=== PATIENT | male | born 1990 | race Caucasian/White ===

== ENCOUNTER 2017-02-07 15:08 | Emergency (ER) | payer MEDICAID, SELFPAY ==
[~2017-02-07] VITALS: Ht 175.3 cm; Wt 82.0 kg
[2017-02-07 15:10] VITALS: BP 137/53
[2017-02-07] MEDS ORDERED: DIVA500T2 PO (16:29)
[2017-02-07] MEDS ORDERED: PROP10TA PO (16:29)
[2017-02-07] MEDS ORDERED: DIPHENHYDRAMINE 25 MG CAPSULE ONE (16:41)
[2017-02-07] MEDS ORDERED: FAMOTIDINE 20 MG TABLET ONE (16:41)
[2017-02-07] MEDS ORDERED: FAMOTIDINE 20 MG TABLET PO ONE (17:00)
[2017-02-07] MEDS ORDERED: DIPHENHYDRAMINE 25 MG CAPSULE PO ONE (17:00)
== END 2017-02-07 17:16 | disposition home or self-care (01) ==
LOC: ED 17:00
DX: S00.86XA Insect bite (nonvenomous) of other part of head, initial encounter (principal); S20.369A Insect bite (nonvenomous) of unspecified front wall of thorax, initial encounter; S50.862A Insect bite (nonvenomous) of left forearm, initial encounter; S50.861A Insect bite (nonvenomous) of right forearm, initial encounter; S40.862A Insect bite (nonvenomous) of left upper arm, initial encounter; S40.861A Insect bite (nonvenomous) of right upper arm, initial encounter; S80.862A Insect bite (nonvenomous), left lower leg, initial encounter; S80.861A Insect bite (nonvenomous), right lower leg, initial encounter; W57.XXXA Bitten or stung by nonvenomous insect and other nonvenomous arthropods, initial encounter; Y93.89 Activity, other specified; Y92.098 Other place in other non-institutional residence as the place of occurrence of the external cause; Y99.8 Other external cause status
CPT/HCPCS: 99283; Q0163

== ENCOUNTER 2017-02-22 15:49 | Emergency (ER) | payer MEDICAID ==
[~2017-02-22] VITALS: Ht 175.3 cm; Wt 82.8 kg
[~2017-02-22 15:49] MED LIST: DIVA500T2 PO; PROP10TA PO
[2017-02-22 15:52] VITALS: BP 134/85
== END 2017-02-22 16:42 | disposition home or self-care (01) ==
LOC: ED 16:37
DX: J20.9 Acute bronchitis, unspecified (principal); I10 Essential (primary) hypertension; J02.8 Acute pharyngitis due to other specified organisms; J45.909 Unspecified asthma, uncomplicated; F17.210 Nicotine dependence, cigarettes, uncomplicated
CPT/HCPCS: 71020; 99284

== ENCOUNTER 2017-04-19 16:42 | Emergency (ER) | payer MEDICAID ==
[~2017-04-19] VITALS: Ht 175.3 cm; Wt 85.3 kg
[2017-04-19 17:04] VITALS: BP 128/92
== END 2017-04-19 18:30 | disposition home or self-care (01) ==
LOC: ED 18:00
DX: S89.91XA Unspecified injury of right lower leg, initial encounter (principal); G89.11 Acute pain due to trauma; X50.1XXA Overexertion from prolonged static or awkward postures, initial encounter; Y93.89 Activity, other specified; Y92.89 Other specified places as the place of occurrence of the external cause; Y99.8 Other external cause status
CPT/HCPCS: 29505; 99284

== ENCOUNTER 2017-11-16 09:38 | Emergency (ER) | payer MEDICAID ==
[~2017-11-16] VITALS: Ht 175.3 cm; Wt 70.1 kg
[2017-11-16 09:44] VITALS: BP 119/75
[2017-11-16] MEDS ORDERED: IBUPROFEN 800 MG TABLET ONE (10:25)
[2017-11-16] MEDS ORDERED: IBUPROFEN 200 MG TABLET PO ONE (10:30)
== END 2017-11-16 10:29 | disposition home or self-care (01) ==
LOC: ED 10:23
DX: K04.7 Periapical abscess without sinus (principal); J45.909 Unspecified asthma, uncomplicated; Z88.6 Allergy status to analgesic agent; F17.200 Nicotine dependence, unspecified, uncomplicated
CPT/HCPCS: 10160; 99284

== ENCOUNTER 2020-11-14 14:37 | Emergency (ER) | payer SELFPAY ==
[~2020-11-14] VITALS: Ht 175.3 cm; Wt 77.6 kg
[~2020-11-14 14:37] MED LIST changes: -PROP10TA PO; +PROP10TA16 PO
[2020-11-14 14:49] VITALS: BP 127/86
[2020-11-14 15:33] LABS: BASOPHILS % (AUTO) 1 % (0-1); EOSINOPHILS % (AUTO) 1 % (1-7); LYMPHOCYTES % (AUTO) 39 % (22-44); MEAN CORPUSCULAR HEMOGLOBIN 33.6 pg (27.5-34.5); MEAN CORPUSCULAR HGB CONC 34.2 g/dL (33.2-36.2); MONOCYTES % (AUTO) 8 % (2-9); NEUTROPHILS % (AUTO) 51 % (42-75); PLATELET COUNT 222 x10^3/uL (130-400); RED BLOOD COUNT 4.96 x10^6/uL (4.38-5.82); RED CELL DISTRIBUTION WIDTH 13.5 % (9.4-14.8)
[2020-11-14 15:48] LABS: ALANINE AMINOTRANSFERASE 23 U/L (12-78); ALBUMIN 3.5 g/dL (3.4-5.0); ANION GAP 5 mmol/L (5-15); CALCIUM 8.7 mg/dL (8.5-10.1); CHLORIDE 106 mmol/L (98-107); CREATININE 1.09 mg/dL (0.7-1.3)
[2020-11-14 15:49] LABS: ALKALINE PHOSPHATASE 48 U/L (45-117); BILIRUBIN,TOTAL 0.5 mg/dL (0.2-1.0); TOTAL PROTEIN 6.7 g/dL (6.4-8.2)
--- NOTE | 2020-11-14 17:08 | NUR ---
PT REC'VD DISCHARGE INSTRUCTIONS AND EDUCATION. PT HAD NO FURTHER QUESTIONS. PT AMBULATED TO DC AREA, STEADY GAIT.
== END 2020-11-14 17:12 | disposition home or self-care (01) ==
LOC: ED 17:08
DX: K42.9 Umbilical hernia without obstruction or gangrene (principal); R19.7 Diarrhea, unspecified; J45.909 Unspecified asthma, uncomplicated; I10 Essential (primary) hypertension; Z88.5 Allergy status to narcotic agent
CPT/HCPCS: 36415; 74021; 80053; 85025; 99284